=== PATIENT | female | born 1985 | race Caucasian/White ===

== ENCOUNTER → 2019-03-13 | Day surgery (SDC) | payer BC ==
--- NOTE | 2019-03-15 10:30 | PATH ---
Cytology Non-Gynecological Report Patient Name: ASHLY CHURCH [facility]. Rec. #: [id number] /Age/Gender: 1985 (Age: 33) / F Account: [id number] Location: RADIOLOGY INTER Taken: 03/13/2019 Received: 03/13/2019 Reported: 03/15/2019 Physicians: Spring Cat M.D. Specimen(s) Received LEFT THYROID FNA Clinical History Left lobe nodule, 1.93 x 1.21 x 1.40 cm Final Diagnosis THYROID, LEFT LOBE, FINE NEEDLE ASPIRATION: SATISFACTORY FOR EVALUATION. B[place]ES[place] CLASS II: BENIGN. CYTOLOGIC FINDINGS ARE CONSISTENT WITH A BENIGN FOLLICULAR NODULE WITH POST-HEMORRHAGIC CHANGE. 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 Electronically Signed Abby Fuentes M.D. Gross Description Received are eight direct smears, four of which are air-dried and Diff-Quik stained, and four of which are alcohol fixed and Pap stained. Also received is 20 ml of bloody formalin from which one cellblock is prepared.
== END | disposition home or self-care (01) ==
LOC: JRADIR 09:21
PROVIDERS: ATTEND Internal Medicine Endocrinology, Diabetes & Metabolism
PROC: 0G9G3ZX Drainage of Left Thyroid Gland Lobe, Percutaneous Approach, Diagnostic (ICD-10-PCS; principal; 2019-03-13)
PROC: BG44ZZZ Ultrasonography of Thyroid Gland (ICD-10-PCS; 2019-03-13)
DX: E04.1 Nontoxic single thyroid nodule (principal)
CPT/HCPCS: 76942